=== PATIENT | male | born 1995 | race African-American/Black ===

== ENCOUNTER 2018-11-23 18:16 | Emergency (ER) | payer OTHER ==
[2018-11-23 18:29] VITALS: BP 112/98
[2018-11-23] MEDS ORDERED: DIPH1TAB PO (19:05)
[2018-11-23] MEDS ORDERED: AMOX1TAB61 PO (19:05)
--- NOTE | 2018-11-23 19:05 | PHYS DOC ---
Past History Past Medical History: No Pertinent History Past Surgical History: No Surgical History Alcohol Use: None Drug Use: None Adult General Chief Complaint Chief Complaint: FLU SYMPTOM HPI HPI Patient is a 22-year-old male who presents with complaint of nasal congestion, headache and pain behind his eyes. Patient also indicates that he has had some purulent nasal drainage. He admits to cough but states the cough is really not been very productive. He denies any fever. Patient rates his pain at a 7 out of 10. He states that the pain behind his eyes is been present for the last couple days. He also complains of diarrhea that started earlier this evening.[] Review of Systems Review of Systems Constitutional: Denies fever or chills [] Eyes: Denies change in visual acuity, redness, or eye pain [] HENT: Complains of nasal congestion, purulent nasal discharge and facial pain[] Respiratory: Complains of dry cough without shortness of breath [] Cardiovascular: No additional information not addressed in HPI [] GI: Denies abdominal pain, nausea or vomiting. Admits to diarrhea [] Neurologic: Denies headache, focal weakness or sensory changes [] Allergies Allergies Allergies Coded Allergies Type Severity Reaction Last Updated Verified No Known Drug Allergies 11/23/18 No Physical Exam Physical Exam Constitutional: Well developed, well nourished, no acute distress, non-toxic appearance. [] HENT: Normocephalic, atraumatic, frontal and maxillary sinuses are tender to percussion and palpation, oropharynx moist, no oral exudates, nose normal. [] Eyes: PERRLA, EOMI, conjunctiva normal, no discharge. [] Cardiovascular:Heart rate regular rhythm, no murmur [] Lungs & Thorax: Bilateral breath sounds clear to auscultation [] Neurologic: Alert and oriented X 3, no focal deficits noted. [] Current Patient Data Vital Signs Vital Signs Date Time Temp Pulse Resp B/P (MAP) Pulse Ox O2 Delivery O2 Flow Rate FiO2 11/23/18 18:29 100.8 81 18 95 Room Air EKG EKG [] Radiology/Procedures Radiology/Procedures [] Course & Med Decision Making Course & Med Decision Making Pertinent Labs and Imaging studies reviewed. (See chart for details) [] Dragon Disclaimer Dragon Disclaimer This electronic medical record was generated, in whole or in part, using a voice recognition dictation system. Departure Departure: Impression: Primary Impression: Sinusitis Additional Impression: Diarrhea Disposition: HOME, SELF-CARE Condition: STABLE Referrals: ASHTYN PHILLIPS (PCP) Patient Instructions: Diarrhea, Sinusitis Scripts Diphenoxylate Hcl/Atropine (LOMOTIL TABLET) 1 Each Tablet 1 TAB PO TID PRN for DIARRHEA, #15 TAB Prov: CATIE SAMSON Jr. DO 11/23/18 Amoxicillin/Potassium Clav (AUGMENTIN 875-125 TABLET) 1 Each Tablet 1 TAB PO BID for infection, #20 TAB Prov: CATIE SAMSON Jr. DO 11/23/18 Problem Qualifiers Primary Impression: Sinusitis Sinusitis location: maxillary Chronicity: acute Recurrence: non- recurrent Qualified Codes: J01.00 - Acute maxillary sinusitis, unspecified Additional Impression: Diarrhea Diarrhea type: unspecified type Qualified Codes: R19.7 - Diarrhea, unspecified CATIE SAMSON Jr. DO November 23, 2018 19:05
== END 2018-11-23 19:07 | disposition home or self-care (01) ==
LOC: ER 18:16
DX: J01.00 Acute maxillary sinusitis, unspecified (principal); R19.7 Diarrhea, unspecified
CPT/HCPCS: 99283

== ENCOUNTER 2019-03-17 12:04 | Emergency (ER) | payer OTHER ==
[~2019-03-17] VITALS: Ht 165.1 cm; Wt 76.7 kg
[2019-03-17 12:04] VITALS: BP 118/60
[~2019-03-17 12:04] MED LIST: AMOX1TAB61 PO; DIPH1TAB PO
[2019-03-17] MEDS ORDERED: IBUPROFEN 600 MG TABLET. PO ONE (12:30)
--- NOTE | 2019-03-17 12:41 | PHYS DOC ---
Past History Past Medical History: No Pertinent History Past Surgical History: No Surgical History Alcohol Use: None Drug Use: None Adult General Chief Complaint Chief Complaint: SHOULDER INJURY HPI HPI 23-year-old male presents to the emergency department with complaints of left shoulder pain. Patient states he was swimming this morning with a backstroke felt his shoulder pop out. This was approximately 0 645. Patient's that hip pain since that time, limited range of motion secondary to pain as well. He denies any past medical history, no medications, no allergies to medications. Pain is at rest, worse with movement Review of Systems Review of Systems Constitutional: Denies fever or chills [] Respiratory: Denies cough or shortness of breath [] Cardiovascular: No additional information not addressed in HPI [] Musculoskeletal: Left shoulder pain, pain with range of motion All other systems were reviewed and found to be within normal limits, except as documented in this note. Current Medications Current Medications Current Medications Medications (Trade) Dose Ordered Sig/Mayi Start Time Stop Time Status Last Admin Dose Admin Ibuprofen (Motrin) 600 mg 1X ONCE 03/17/19 12:30 03/17/19 12:31 DC 03/17/19 12:38 600 MG Allergies Allergies Allergies Coded Allergies Type Severity Reaction Last Updated Verified No Known Drug Allergies 11/23/18 No Physical Exam Physical Exam Constitutional: Well developed, well nourished, no acute distress, non-toxic appearance. [] Neck: Normal range of motion, no tenderness, supple, no stridor. [] Cardiovascular:Heart rate regular rhythm, no murmur [] Lungs & Thorax: Bilateral breath sounds clear to auscultation [] Extremities: No tenderness, no cyanosis, no clubbing, pain with ROM however intact, no edema. [] Neurologic: Alert and oriented X 3, no focal deficits noted. [] Psychologic: Affect normal, judgement normal, mood normal. [] Current Patient Data Vital Signs Vital Signs Date Time Temp Pulse Resp B/P (MAP) Pulse Ox O2 Delivery O2 Flow Rate FiO2 03/17/19 12:04 98.4 66 16 98 Room Air EKG EKG [] Radiology/Procedures Radiology/Procedures [address] [address] IMAGING REPORT Signed PATIENT: DWIGHT MENDENHALL ACCOUNT: [id number] : 1995 LOCATION: ER AGE: 23 SEX: M EXAM STATUS: REG ER ORD. PHYSICIAN: TOO BONILLA MD REASON: shoulder injury with swimming, pain PROCEDURE: SHOULDER 2+V LEFT EXAM: 3 Views Left Shoulder DATE: 03/17/2019 12:28 PM INDICATION: COMPARISON: No Prior FINDINGS: There is no evidence for acute fracture or dislocation. AC joint is congruent. Humeral head is not high riding. IMPRESSION: 1. No acute fracture or dislocation. Electronically signed by: Sesar Arevalo MD (03/17/2019 12:51 PM) [id number] DICTATED AND SIGNED BY: SESAR AREVALO MD DATE: 03/17/19 1251 CC: TOO BONILLA MD; ASHTYN PHILLIPS ~ [] Course & Med Decision Making Course & Med Decision Making Pertinent Labs and Imaging studies reviewed. (See chart for details) []23-year-old male presents to the emergency department with complaints of left shoulder pain. Patient states he was swimming this morning with a backstroke felt his shoulder pop out. This was approximately 0 645. Patient's that hip pain since that time, limited range of motion secondary to pain as well. He denies any past medical history, no medications, no allergies to medications. Pain is at rest, worse with movement. Left shoulder imaging reviewed, no evidence of acute fracture or dislocation. Commend anti-inflammatories, limited physical activity if continued pain. Dragon Disclaimer Dragon Disclaimer This electronic medical record was generated, in whole or in part, using a voice recognition dictation system. Departure Departure: Impression: Primary Impression: Left shoulder pain Disposition: 01 HOME, SELF-CARE Condition: STABLE Referrals: ASHTYN PHILLIPS (PCP) Patient Instructions: Shoulder Pain, [id number] Additional Instructions: Recommend follow up with PCP as needed Tylenol/Motrin as needed for pain Xray without dislocation and/or fracture Consider MRI if continued pain Scripts Naproxen (NAPROSYN) 500 Mg Tablet 500 MG PO BID for pain, #20 TAB Prov: TOO BONILLA MD 03/17/19 Problem Qualifiers Primary Impression: Left shoulder pain Chronicity: acute Qualified Codes: M25.512 - Pain in left shoulder TOO BONILLA MD Mar 17, 2019 12:41
--- NOTE | 2019-03-17 12:54 | RAD ---
EXAM: 3 Views Left Shoulder DATE: 03/17/2019 12:28 PM INDICATION: COMPARISON: No Prior FINDINGS: There is no evidence for acute fracture or dislocation. AC joint is congruent. Humeral head is not high riding. IMPRESSION: 1. No acute fracture or dislocation. Electronically signed by: Sesar Mcwilliams MD (03/17/2019 12:51 PM) [facility]
[2019-03-17] MEDS ORDERED: NAPR-683 PO (13:04)
== END 2019-03-17 13:19 | disposition home or self-care (01) ==
LOC: ER 12:04
DX: M25.512 Pain in left shoulder (principal); X50.9XXA Other and unspecified overexertion or strenuous movements or postures, initial encounter; Y93.11 Activity, swimming; Y92.89 Other specified places as the place of occurrence of the external cause; Y99.8 Other external cause status
CPT/HCPCS: 73030; 99284

== ENCOUNTER 2019-05-07 10:18 | Emergency (ER) | payer OTHER ==
[~2019-05-07] VITALS: Ht 165.1 cm; Wt 79.4 kg
[~2019-05-07 10:18] MED LIST changes: +NAPR-683 PO
[2019-05-07 10:30] VITALS: BP 144/77
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
== END 2019-05-07 10:44 | disposition home or self-care (01) ==
LOC: ER 10:18
DX: S13.9XXA Sprain of joints and ligaments of unspecified parts of neck, initial encounter (principal); V89.2XXA Person injured in unspecified motor-vehicle accident, traffic, initial encounter; Y93.89 Activity, other specified; Y92.89 Other specified places as the place of occurrence of the external cause; Y99.8 Other external cause status
CPT/HCPCS: 99281